=== PATIENT | male | born 1960 | race Caucasian/White ===

== ENCOUNTER → 2018-09-17 14:41 | Outpatient (CLI) | payer OTHER, SELFPAY ==
[2018-09-17 16:10] LABS: PSA,Total- Diagnostic 4.06 ng/mL (0.0-4.0)
== END ==
PROVIDERS: Referring Provider Nurse Practitioner Adult Health; Visit Provider Nurse Practitioner Adult Health
DX: R97.20 Elevated prostate specific antigen [PSA] (principal)
CPT/HCPCS: 36415; 84153

== ENCOUNTER → 2018-12-29 10:52 | Outpatient (CLI) | payer OTHER, SELFPAY ==
[2018-12-29 12:00] LABS: PSA,Total- Diagnostic 6.73 ng/mL (0.0-4.0)
== END ==
PROVIDERS: Referring Provider Nurse Practitioner Adult Health; Visit Provider Nurse Practitioner Adult Health
DX: R97.20 Elevated prostate specific antigen [PSA] (principal)
CPT/HCPCS: 36415; 84153

== ENCOUNTER → 2019-01-28 10:02 | Outpatient (CLI) | payer OTHER, SELFPAY ==
--- NOTE | 2019-01-28 | IMM_PTH ---
PATIENT: VIKTOR COLORADO LOC: [facility] U#:[id number] AGE/SX: 65/M ROOM: RE01/28/[address]: Dr. Brandon Cespedes MD : 1960 BED: DIS: SPEC #: [id number] RECD: 02/02/19 11:41 STATUS: MAJO REArt #: [id number] PETERSON: 01/28/19 00:[address]: Brandon Cespedes DEPT: IMMUNOHISTOCHEMISTRY RECD BY: Jyothi Leal ENTERED: 02/02/19 11:43 SP TYPE: IMMUNO OTHR DR: [facility] [place] Doctor Tissues: B - PROSTATE RIGHT C - PROSTATE RIGHT D - PROSTATE LEFT E - PROSTATE LEFT F - PROSTATE LEFT Procedures: 34BE12 (add) P40 (add) 34BE12 (initial) PHYSICIAN & INSTITUTION [place] [id number] SPECIMEN INFORMATION: Tissue Source: B - Right mid, C - Right base, D - Left apex, E - Left mid, F - Left base Clinical Info: Elevated PSA Specimen Number: [id number] B-E CPT code: 17606, 06105 x9 METHODOLOGY: Deparaffinized sections of prefer/formalin-fixed tissue or PAP/DQ stained slides are incubated with monoclonal/polyclonal antibodies/oligonucleotide probes. Localization is made via biotin free immunoperoxidase method. Appropriate controls are performed and reacted as expected. Results on target cell population are indicated in the following table: RESULTS: ANTIBODY / CLONE RESULT Block B P40 (BC28) positive 34BE12 (34BE12) positive Block C P40 (BC28) positive 34BE12 (34BE12) positive Block D P40 (BC28) negative 34BE12 (34BE12) negative Block E P40 (BC28) positive 34BE12 (34BE12) positive Block F P40 (BC28) positive 34BE12 (34BE12) positive These tests were developed and their performance characteristics determined by [facility]. They may not have been cleared or approved by the U.[place]. Food and Drug Administration. The FDA has determined that such clearance or approval is not necessary. INTERPRETATION: B. Right prostate, mid, core biopsy: Benign prostatic tissue. C. Right prostate, base, core biopsy: Benign prostatic tissue. D. Left prostate, apex, core biopsy: Adenocarcinoma. E. Left prostate, mid, core biopsy: Benign prostatic tissue. F. Left prostate, base, core biopsy: Benign prostatic tissue. AM:shira 02/02/19
--- NOTE | 2019-01-28 08:00 | PROSBIL_PTH ---
PATIENT: VIKTOR COLORADO LOC: [facility] U#:[id number] AGE/SX: 65/M ROOM: RE01/28/[address]: Dr. Brandon Cespedes MD : 1960 BED: DIS: SPEC #: [id number] RECD: 01/28/19 16:56 STATUS: MAJO JOSIANE #: [id number] PETERSON: 01/28/19 08:[address]: Brandon Cespedes DEPT: SURGICAL PATHOLOGY RECD BY: Mario Stanley ENTERED: 01/29/19 09:19 SP TYPE: PROST BX JOHN DR: Out of Town Doctor Tissues: A - PROSTATE RIGHT B - PROSTATE RIGHT C - PROSTATE RIGHT D - PROSTATE LEFT E - PROSTATE LEFT F - PROSTATE LEFT Procedures: PROSTATE BX HEADER OPERATION: Prostate biopsy PRE-OP DIAGNOSIS: Elevated PSA TISSUE SUBMITTED: A - Right apex, B - Right mid, C - Right base, D - Left apex, E - Left mid, F - Left base MICROSCOPIC DIAGNOSIS A. Right prostate, apex, core biopsy: Benign prostatic tissue. B. Right prostate, mid, core biopsy: Focal chronic inflammation and mild glandular atrophy. See comment. C. Right prostate, base, core biopsy: Benign prostatic tissue. See comment. D. Left prostate, apex, core biopsy: Adenocarcinoma: [place] grade: 6 (3+3) Cores involved: 1 out of 2 Tissue involved: 2% Greatest tumor length: 1 mm See comment. E. Left prostate, mid, core biopsy: Focal glandular atrophy. See comment. F. Left prostate, base, core biopsy: Focal high-grade prostatic intraepithelial neoplasia (HGPIN). See comment. AM:shira 02/02/19 COMMENT B-E. Immunohistochemistry ([id number]) supports the above diagnosis. MICROSCOPIC DESCRIPTION Slides are reviewed. GROSS DESCRIPTION A - Received is one container designated prostate, right apex. The specimen consists of two elongated fragments of light bolivar-white soft tissue each measuring 1 cm in length and 0.1 cm in diameter. The specimen is totally submitted in one cassette. B - Received is one container designated prostate, right mid. The specimen consists of two elongated fragments of light bolivar-white soft tissue each measuring 1.5 cm in length and 0.1 cm in diameter. The specimen is totally submitted in one cassette. C - Received is one container designated prostate, right base. The specimen consists of two elongated fragments of light bolivar-white soft tissue each measuring 1.5 cm in length and 0.1 cm in diameter. The specimen is totally submitted in one cassette. D - Received is one container designated prostate, left apex. The specimen consists of two elongated fragments of light bolivar-white soft tissue each measuring 1 cm in length and 0.1 cm in diameter. The specimen is totally submitted in one cassette. E - Received is one container designated prostate, left mid. The specimen consists of two elongated fragments of light bolivar-white soft tissue each measuring 1 cm in length and 0.1 cm in diameter. The specimen is totally submitted in one cassette. F - Received is one container designated prostate, left base. The specimen consists of two elongated fragments of light bolivar-white soft tissue each measuring 1 cm in length and 0.1 cm in diameter. The specimen is totally submitted in one cassette. / AM:shira 01/29/19 TC:0 [facility]: [id number] x6 ADDENDUM ADDENDUM ADDENDUM ADDENDUM ADDENDUM ADDENDUM ADDENDUM ADDENDUM 03/16/2019 10:34 ADDENDUM 03/16/2019 10:34 ADDENDUM 03/16/2019 10:34 ADDENDUM 03/16/2019 10:34 ADDENDUM 03/16/2019 10:34 An order for Oncotype testing was received from Dr. Cespedes. This necessitated case review, block and slide selection by pathologist at [facility]. Genomic Prostate Score = 29 Results of the complete Oncotype testing ([employer] report) are viewable in EMR under: Reports - Pathology - Lab Pathology Report, Scanned.
== END ==
PROVIDERS: Visit Provider Urology
DX: R97.20 Elevated prostate specific antigen [PSA] (principal)
CPT/HCPCS: 88305; 88341; 88342; G0416

== ENCOUNTER → 2019-05-11 07:10 | Outpatient (CLI) | payer OTHER, SELFPAY ==
[2019-05-11 08:06] LABS: PSA,Total- Diagnostic 6.73 ng/mL (0.0-4.0)
== END ==
PROVIDERS: Referring Provider Urology; Visit Provider Urology
DX: C61 Malignant neoplasm of prostate (principal)
CPT/HCPCS: 36415; 84153

== ENCOUNTER → 2024-12-11 | Outpatient (CLI) | payer OTHER, SELFPAY ==
--- NOTE | 2024-12-11 10:55 | MRI_ITS ---
EXAM: MRI lumbar spine without IV contrast CLINICAL HISTORY: Pain, radiculopathy COMPARISON: 11/05/2024 TECHNIQUE: Multisequence multiplanar MR images of the lumbar spine were obtained without the administration of intravenous contrast. Imaging sequences were performed to best display suspected pathology. FINDINGS: Vertebral body heights are within normal limits. Negative for acute fracture or suspicious marrow replacement. Alignment is maintained. Conus medullaris is intact and terminates at L1. No paraspinal mass. Colonic diverticulosis. L1-2: Small posterior disc bulge. Mild bilateral facet arthrosis. No significant spinal stenosis or foraminal narrowing. L2-3: Minimal posterior disc bulge. Mild bilateral facet arthrosis. No significant spinal stenosis or foraminal narrowing. L3-4: Posterior disc bulge. Mild bilateral facet arthrosis and ligamentum flavum hypertrophy. Mild spinal stenosis. Mild right foraminal narrowing. L4-5: Posterior disc bulge. Mild/moderate bilateral facet arthrosis and ligamentum flavum hypertrophy. Mild spinal stenosis. Mild bilateral foraminal narrowing. L5-S1: Posterior disc bulge. Mild bilateral facet arthrosis. No significant spinal stenosis or foraminal narrowing. MRI/Spine Lumbar (Routine) IMPRESSION: Acquired mild spinal stenosis and mild foraminal narrowing at L3-4 and L4-5. Reading Location: [facility]
== END | disposition home or self-care (01) ==
LOC: MRI 10:53
PROVIDERS: PCP Nurse Practitioner Adult Health; Referring Provider Orthopaedic Surgery Orthopaedic Surgery of the Spine; Visit Provider Orthopaedic Surgery Orthopaedic Surgery of the Spine
DX: M54.16 Radiculopathy, lumbar region (principal)
CPT/HCPCS: 72148